=== PATIENT | male | born 2000 | race Two or more races ===

== ENCOUNTER 2020-06-11 10:33 | Emergency (ER) | payer BC, OTHER ==
[~2020-06-11] VITALS: Ht 167.6 cm; Wt 54.7 kg
--- NOTE | 2020-06-11 10:59 | NUR ---
CCOLLAR IN TRIAGE
--- NOTE | 2020-06-11 11:33 | NUR ---
PT RESTING IN GURNEY C C-COLLAR IN PLACE, LAYING SUPINE/FLAT. PT INSTRUCTED ON C-COLLAR & POSITIONING, VERBALIZED UNDERSTANDING. PT INSTRUCTED [employer] INS[employer]OR LIGHT USE, VERBALIZED UNDERSTANDING, CALL LIGHT W/IN REACH. ED MD AT BEDSIDE TO DISCUSS POC C PT. PT DENIES NEEDS AT THIS TIME.
--- NOTE | 2020-06-11 11:50 | NUR ---
report from aaron murray. as
--- NOTE | 2020-06-11 11:57 | NUR ---
at imaging. as
[2020-06-11 13:13] VITALS: BP 127/76
== END 2020-06-11 13:15 | disposition home or self-care (01) ==
LOC: ED 12:44
DX: S16.1XXA Strain of muscle, fascia and tendon at neck level, initial encounter (principal); S80.01XA Contusion of right knee, initial encounter; S20.219A Contusion of unspecified front wall of thorax, initial encounter; S09.90XA Unspecified injury of head, initial encounter; Z87.891 Personal history of nicotine dependence; V49.59XA Passenger injured in collision with other motor vehicles in traffic accident, initial encounter; Y93.89 Activity, other specified; Y92.488 Other paved roadways as the place of occurrence of the external cause; Y99.8 Other external cause status
CPT/HCPCS: 70450; 71046; 99284